=== PATIENT | female | born 1980 | race African-American/Black ===

== ENCOUNTER 2023-12-19 10:56 | Emergency (ER) | payer MEDICAID, SELFPAY ==
[2023-12-19] MEDS ORDERED: Acetaminophen 500 MG TAB ONE (11:17)
[2023-12-19] MEDS ORDERED: Cyclobenzaprine 10 MG TAB ONE (11:17)
[2023-12-19] MEDS ORDERED: Ibuprofen 200 MG TAB ONE (11:17)
== END 2023-12-19 12:40 | disposition home or self-care (01) ==
LOC: ERS 10:56
DX: S39.012A Strain of muscle, fascia and tendon of lower back, initial encounter (principal); S29.012A Strain of muscle and tendon of back wall of thorax, initial encounter; E11.9 Type 2 diabetes mellitus without complications; Z76.89 Persons encountering health services in other specified circumstances; Z79.899 Other long term (current) drug therapy; V43.52XA Car driver injured in collision with other type car in traffic accident, initial encounter
CPT/HCPCS: 72072; 72100